=== PATIENT | male | born 1945 | race Caucasian/White ===

== ENCOUNTER 2024-07-16 15:49 | Inpatient (IN) | payer MEDICARE, OTHER, SELFPAY ==
[2024-07-16] VITALS (19 sets, daily range): BP systolic 91–100; BP diastolic 47–53; PULSE 74–99; RESP 12–25; TEMP 36.4; O2SAT 93–96
--- NOTE | 2024-07-16 | DI.RAD_ITS ---
Exam(s) XR PORTABLE CHEST AP EXAM: XR PORTABLE CHEST AP CLINICAL HISTORY: cough, SOB. TECHNIQUE: 2D digital imaging was performed. COMPARISON: CT CT CHEST/ABD/PELVIS W/CONTRAST from 07/16/2024 FINDINGS: Single AP portable view. Heart size is upper normal. The mediastinum is not widened. There are COPD changes. There is infiltrate in the left lower lobe posterior basal segment. Small a mount of left pleural fluid noted. Mild increased markings in the right lung base. There is also so me infiltrate in the left upper lobe sub apical region as well pleural thickening at this level. IMPRESSION: Left lung infiltrates. Small left pleural effusion. Mild increased markings in the right lower lung field. Above findings are superimposed upon COPD emphysematous changes. DATA REPOSITORY: RADIATION DOSE DELIVERED:
--- NOTE | 2024-07-16 19:20 | HPE_ITS ---
Date of service: 07/16/24 Time of Service: 19:20 Assessment and Plan Assessment and plan (1) Pneumonia: Status: Acute Assessment and plan: Probable pneumonia based on what we have at this point, though bronchitis/COPD possible too. Will continue antibiotics (check MRSA swab re Vanco) and will give scheduled nebs at this point as well (is also on Symbicort and Spiriva); I don't see need for steroids at present. Will obtain CXR so that we have some on site imaging. BP soft, without reactive tachycardia (note he is on Lopressor). Some concern for possible emerging sepsis. Will bolus IVF and monitor. SAH: subacute, and apparently stable and (per NS) not requiring any intervention. Will only hold ASA until we have more complete details. Discussed Advance Directives, requests DNR/DNI. History of Present Illness History of Present Illness Chief Complaint: SOB, cough, confusion Narrative: 78 male former smoker (though no formal diagnosis of COPD), was in [facility] last week with SOB and confusion. Found to have Flu., and also apparently an incidental finding of small volume SAH right frontal lobe, no interevntion indicated per NS. Discharged to [facility]. Sent today to [facility] for confusion and SOB (patient adds he has been coughing). Initial findings at [facility] of note for O2 sat 83% and patient was placed on BiPap and given Duonebs. White count 7, CT chest shows possible opacities viral swab triple negative. Patient given Vanco, cefepime and Zithromax. Head CT repeated and appears stable. RLE extremity obtained due to edema, no infectious process and patient states this is chronic. Due to lack of beds patient transferred her. States he feels less SOB, denies CP. Does feel warm and temp at time of visit 38.0. Has been weaned down to nasal cannula and sats low-mid 90s during visit. Review of Systems Narrative: per HPI PFSH All Active Problems (Updated 07/16/24 @ 19:34 by Giovanni Harris MD) Pneumonia (Acute) Social History Smoking risk assessment performed?: No Meds Allergies and Home Medications Allergies Allergy/AdvReac Type Severity Reaction Status Date / Time No Known Allergies Allergy Unverified 07/16/24 16:53 Exam Narrative Exam Narrative: 97/48, 91, 38.0, 22, 92% 2L. HEENT atraumatic; neck supple; lungs bibasilar rales; heart RRR; abdomen soft and NT; extremities bilateral pedal edema, R>L, no calf tenderness; neuro Ox3, lucid, though at times a little slow to gather his thoughts, moves all 4s Results Last Vital Signs Pulse Ox 94 07/16/24 18:37 Time Spent Time spent with Patient: 55-74 minutes Time was spent: preparing to see the patient(eg.review tests), obtaining and/or reviewing separately otained hiistory, ordering medications,tests, procedures, referring, communicating with other health home health care respiratory therapist and indepentently interpreting results
[2024-07-16] MEDS: Normal Saline 250 ML IV (19:30)
[2024-07-16] MEDS: Normal Saline 500 ML IV (20:45)
--- NOTE | 2024-07-16 21:07 | DI.VRAD_ITS ---
PROCEDURE INFORMATION: Exam: XR Chest Exam date and time: 07/16/2024 8:37 PM Age: 78 years old Clinical indication: Cough and shortness of breath; Cough, SOB TECHNIQUE: Imaging protocol: Radiologic exam of the chest. Views: 1 view. COMPARISON: No relevant prior studies available. FINDINGS: Lungs: Bilateral pulmonary opacities/infiltrates are identified likely pneumonia. Pleural spaces: Small pleural effusions. Heart/Mediastinum: Heart is prominent. Bones/joints: Unremarkable. IMPRESSION: 1. Bilateral pulmonary opacities/infiltrates possibly pneumonia. Continued follow-up to resolution is recommended. 2. Small pleural effusions. Dictated and Authenticated by: Raul Francois MD. Orderin Steven Davila MD
[2024-07-16] MEDS: AZITHROMYCIN 250 MG in Normal Saline 250 ML IVPB (21:23)
[2024-07-16] MEDS: Lactated Ringers 1,000 ML 125 ML IV (21:39)
[2024-07-16] MEDS: CEFEPIME 1 GM in Normal Saline 50 ML IVPB (22:42)
[2024-07-16 22:56] LABS: MRSA PCR Negative (Negative)
[2024-07-17] VITALS (108 sets, daily range): BP systolic 91–134; BP diastolic 40–105; PULSE 57–133; RESP 5–33; TEMP 37.3–37.7; O2SAT 80–98
[2024-07-17] MEDS: Norepinephrine in D5W 8 MG/250 ML BAG 5.625 MG IV (00:03)
[2024-07-17] MEDS: Normal Saline 500 ML IV (00:05)
[2024-07-17] MEDS: MAGNESIUM SULFATE 2 GM/50 ML BAG IV_INF (05:01)
[2024-07-17] MEDS: Furosemide 20 MG/2 ML VIAL IVP (05:10)
[2024-07-17] MEDS: CEFEPIME 1 GM in Normal Saline 50 ML IVPB ×3 (06:08→23:31)
[2024-07-17 06:47] LABS: Abs Immature Grans 0.06 10^3/uL (0.0-0.06); Absolute Basophil Count 0.05 10^3/uL (0.0-0.2); Absolute Eosinophil Count 0.03 10^3/uL (0.0-0.7); Absolute Lymphocyte Count 0.68 10^3/uL (1.2-3.4); Absolute Monocyte Count 0.83 10^3/uL (0.1-0.8); Absolute Neutrophil Count 8.56 10^3/uL (1.2-6.7); Basophils % 0.5 %; Eosinophils % 0.3 %; HCT 33.6 % (40.0-50.0); HGB 10.6 g/dL (13.5-17.5); Immature Grans % 0.6 %; Lymphocytes % 6.7 %; MCH 27.5 pg (27.0-33.0); MCHC 31.5 % (32.0-36.0); MCV 87 fL (80-95); MPV 10.4 fL (8.0-11.0); Monocytes % 8.1 %; Neutrophils % 83.8 %; Platelet Count 154 10^3/uL (130-400); RBC 3.85 10^6/uL (4.36-5.78); RDW 15.1 % (11.8-14.1); RDW-SD 48.4 fL; WBC 10.21 10^3/uL (4.4-10.8)
[2024-07-17 07:03] LABS: ALT 17 U/L (16-63); AST 18 U/L (15-37); Albumin 2.3 g/dL (3.4-5.0); Alkaline Phosphatase 103 U/L (46-116); Anion Gap 4.7 mmol/L (3-11); BUN 19 mg/dL (7-18); Bilirubin, Total 0.72 mg/dL (0.2-1.0); CO2 30.3 mmol/L (21.0-32.0); CREATININE 1.1 mg/dL (0.70-1.30); Calcium 8.8 mg/dL (8.5-10.1); Chloride 111 mmol/L (98-107); Estimated GFR 69.57 (mL/min/1.73m2); Glucose 98 mg/dL (74-106); Potassium 3.5 mmol/L (3.5-5.1); Sodium 146 mmol/L (136-145); Total Protein 6.1 g/dL (6.4-8.2)
[2024-07-17 07:24] LABS: Magnesium 1.4 mg/dL (1.8-2.4)
[2024-07-17] MEDS: Albuterol/Ipratropium 3 ML UPD VIAL UPD ×3 (08:33→20:00)
--- NOTE | 2024-07-17 08:41 | PDOC.CMIN ---
Date of service: 07/17/24 Time of Service: 08:41 Care Management Initial Assmt Initial Assessment Reason for Hospitalization: Pneumonia Functional Status/Living Situation Patient Presentation: Ed, as Gautam prefers to be called, was sitting up in bed when CM met with him. He is reportedly less confused today today per staff, however he still seems a bit slow and unsure with some of his responses. Ed was admitted with pneumonia. He was transferred from [facility] where he was sent from [facility] in [place]. CM contacted [facility] and learned that Ed was sent there for short term rehab and is expected to return to complete his rehab prior to going home. Ed lives in a single family home in [place], [place] with his Beth. He also has a daughter Alycia who lives locally and a son who lives in [place]. Ed stated that he uses a cane and a walker for ambulatory assistance. Ed retired last January. 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 His second career was with [employer]. He is independent with ADLs. Town of Residence: [place], [place] Resides with: Other (SNF) Significant Other/Family: Out of area (son in [place]) Employment Status: Retired Instrumental Activities of Daily Living (ADLs): Independent Medications Medication Management: No Issues/Barriers identified Physical Functioning/Mobility Assistive Device: cane and walker Advance Directives Advance Directives: Do you have an Advance Directive: Y 07/16/24 15:49 AD On File at [facility]: Y 07/16/24 15:49 Date Asked 07/16/24 07/16/24 14:16 AD Date Reviewed 07/16/24 07/16/24 15:49 COLST On File at [facility] COLST Date Scanned Code Status Resuscitation Status DNR/DNI Portal Pt does not currently have a portal and education provided: No Portal Education: Patient declined Insurance Coverage/Financial Issues Insurance: Medicare for Life Care Team Visit Care Team Role Provider Type Unknown Unknown Primary Care Provider STAFF PHYSICIAN Clay Mason Admit Provider [facility] STAFF PHYSICIAN Attending Provider Discharge Potential Discharge Needs: Other (SNF) Anticipated Barriers to Discharge: None Identified Patient/Family Education Needs: Review discharge instructions, discuss Ask Me Three Transportation: [facility] Transportation: Private vechicle Plan: Anticipate that Gautam will return to [facility] when medically stable. He will follow up with the facility providers and plan of care and transport via [facility] vs with family. CM will follow and continue to support discharge planning. Social Determinants of Health Screening Social Determinants of Health last assessed: 07/17/24 Will the Patient Participate in the Screening?: Yes Do you worry about having a steady place to live?: no Problems where you live: no known problems In the past 12 months, have you had to go without electric, gas, oil or water in your home?: no Have you or anyone in your house had to go without enough food to eat?: no Has lack of transportation kept you from medical appointments or from doing things needed for daily living?: no Has anyone in your life made you feel unsafe or unsupported?: no How hard is it for you to pay for the very basics like food, housing, medical care, and heating? Would you say it is:: Somewhat hard Do you want help finding or keeping work or a job?: I do not need or want help If for any reason you need help with day-to-day activities such as bathing, preparing meals, shopping, managing finances, etc., do you get the help you need?: I get all the help I need How often do you feel lonely or isolated from those around you?: Rarely Do you speak a language other than Marshallese at home?: No Does the patient want assistance with any of the above?: No Health Related Social Needs Health related social needs: problems related to housing/economic circumstances (Z59.89) and feeling lonely/isolated (Z60.8) PFSH All Active Problems (Updated 07/17/24 @ 11:00 by Clay Mason) DVT prophylaxis (Acute) Peripheral arterial disease (Acute) Hypertension (Chronic) Septic shock (Acute) COPD exacerbation (Acute) Pneumonia (Acute) Medical History (Updated 07/17/24 @ 11:00 by Clay Mason) COPD (chronic obstructive pulmonary disease) History of subarachnoid hemorrhage Surgical History (Updated 07/17/24 @ 10:58 by Clay Mason) S/P AAA (abdominal aortic aneurysm) repair Social History Smoking risk assessment performed?: No Housing: assisted living facility
--- NOTE | 2024-07-17 10:30 | W.PM.PROGNOT ---
Date of Service Date of service: 07/17/24 Time of Service: 08:35 Assessment and Plan Assessment and plan (1) Pneumonia: Status: Acute Assessment and plan: Pneumonia on CT at [facility] and CXR here. Continue cefepime and azithro, I agree with stopping vancomycin with negative MRSA swab. I started steroids given COPD and pneumonia. (2) Septic shock: Status: Acute Assessment and plan: On norepinephrine. Some signs of fluid overload, will not push fluids, get echocardiogram to assess fluid status. Taper norepi drip if able. (3) COPD exacerbation: Status: Acute Assessment and plan: IV methylprednisolone and nebs. Working with RT Resume outpatient inahalers. (4) Hypertension: Status: Chronic Assessment and plan: holding HCTZ, metoprolol whild BP low. (5) History of subarachnoid hemorrhage: Assessment and plan: Stable per report on 2 follow up CTs including 07/16 at [facility]. His mental status is clearing (6) Peripheral arterial disease: Status: Acute Assessment and plan: h/o AAA repair. Continue high intensity statin and aspirin (7) DVT prophylaxis: Status: Acute Assessment and plan: enoxaparin Subjective Subjective Patient reports: denies diarrhea, nausea, vomiting or fever Interval history since last seen: 24 hr: home meds not reconciled with home meds on admission Furosemide 20mg IV x 1 MRSA PCR nares negative, vancomycin not continued He is feeling a little better. Report of confusion overnight but he feels more clear mentally this morning. He states he feels like crap but can't say he has focal symptoms. No LANG, no chest pain, no abdominal pain. Breathing is getting better. No other joint or extremity pain. Exam Narrative Exam Narrative: GEN: Alert and oriented x 3, can report recent history at [facility]. lungs bibasilar diffusely poor air movement, slight rales just left base; heart RRR; abdomen soft and NT; extremities bilateral pedal edema 2-3+ in feet to shins, not tender. Objective Last Vital Signs Temp 37.6 C H 07/17/24 01:17 Pulse 109 H 07/17/24 10:16 Resp 32 H 07/17/24 10:16 BP 125/48 L 07/17/24 10:16 Pulse Ox 85 L 07/17/24 10:16 Laboratory Results - last 24 hr 07/16/24 07/17/24 21:30 05:35 WBC 10.21 RBC 3.85 L Hgb 10.6 L Hct 33.6 L MCV 87 MCH 27.5 MCHC 31.5 L RDW 15.1 H Plt Count 154 MPV 10.4 Immature Gran % 0.6 Neutrophils % 83.8 Lymphocytes % 6.7 Monocytes % 8.1 Eosinophils % 0.3 Basophils % 0.5 Nucleated RBC % 0.0 Absolute Neutrophils 8.56 H Absolute Lymphocytes 0.68 L Absolute Monocytes 0.83 H Absolute Eosinophils 0.03 Absolute Basophils 0.05 Sodium 146 H Potassium 3.5 Chloride 111 H Carbon Dioxide 30.3 Anion Gap 4.7 BUN 19 H Creatinine 1.1 Est GFR (CKD-EPI 2020) 69.57 Glucose 98 Calcium 8.8 Magnesium 1.4 L Total Bilirubin 0.72 AST 18 ALT 17 Alkaline Phosphatase 103 Total Protein 6.1 L Albumin 2.3 L MRSA (TEM-PCR) Negative Time Spent with Patient Time Spent with Patient: >50 minutes Time was spent: preparing to see the patient(eg.review tests), obtaining and/or reviewing separately otained hiistory, ordering medications,tests, procedures, referring, communicating with other health intensive care specialist, indepentently interpreting results, counseling the patient and care coordination
[2024-07-17] MEDS: Normal Saline Flush 10 ML SYR (10:40)
[2024-07-17] MEDS: methylPREDNISolone SUCC 125 MG VIAL 80 MG IVP ×2 (10:41→19:02)
--- NOTE | 2024-07-17 14:41 | CHAPLAIN ---
I visited with Ed this afternoon. He was resting in bed. He was pleasant and easily engaged in a conversation. Ed is from [place] and came here from [facility]. 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
[2024-07-17] MEDS: Normal Saline Flush 10 ML SYR IVP (19:02)
[2024-07-17] MEDS: Budesonide/Formoterol 160/4.5 6 GM 60 PUFF INH IH (20:06)
[2024-07-17] MEDS: Gabapentin 300 MG CAP 600 MG PO (20:25)
[2024-07-17] MEDS: Docusate Sodium 100 MG CAP PO (20:25)
[2024-07-17] MEDS: Metoprolol 25 MG TAB PO (20:26)
[2024-07-17] MEDS: guaiFENesin 600 MG TABCR PO (20:26)
[2024-07-17] MEDS: AZITHROMYCIN 250 MG in Normal Saline 250 ML IVPB (20:26)
[2024-07-17] MEDS: Atorvastatin 40 MG TAB 80 MG PO (20:26)
[2024-07-17] MEDS: traZODone 50 MG TAB PO (20:26)
[2024-07-17 20:49] LABS: Legionella Ag Detection Urine Negative (Negative)
[2024-07-18] VITALS (27 sets, daily range): BP systolic 103–133; BP diastolic 53–69; PULSE 57–97; RESP 5–28; TEMP 36.6–37.6; O2SAT 87–98
[2024-07-18] MEDS: methylPREDNISolone SUCC 125 MG VIAL 80 MG IVP (01:27)
[2024-07-18] MEDS: Normal Saline Flush 10 ML SYR IVP (01:30)
[2024-07-18] MEDS: Albuterol/Ipratropium 3 ML UPD VIAL UPD ×4 (02:40→20:25)
[2024-07-18 06:04] LABS: Abs Immature Grans 0.04 10^3/uL (0.0-0.06); Absolute Basophil Count 0.01 10^3/uL (0.0-0.2); Absolute Lymphocyte Count 0.23 10^3/uL (1.2-3.4); Absolute Monocyte Count 0.12 10^3/uL (0.1-0.8); Absolute Neutrophil Count 5.41 10^3/uL (1.2-6.7); Basophils % 0.2 %; HCT 34.3 % (40.0-50.0); HGB 10.8 g/dL (13.5-17.5); Immature Grans % 0.7 %; MCH 27.6 pg (27.0-33.0); MCHC 31.5 % (32.0-36.0); MCV 88 fL (80-95); Monocytes % 2.1 %; Platelet Count 141 10^3/uL (130-400); RBC 3.91 10^6/uL (4.36-5.78); RDW 14.9 % (11.8-14.1); RDW-SD 47.8 fL; WBC 5.81 10^3/uL (4.4-10.8)
[2024-07-18] MEDS: CEFEPIME 1 GM in Normal Saline 50 ML IVPB ×3 (06:04→21:43)
[2024-07-18 06:19] LABS: Anion Gap 5.7 mmol/L (3-11); BUN 27 mg/dL (7-18); CO2 28.3 mmol/L (21.0-32.0); CREATININE 1.2 mg/dL (0.70-1.30); Calcium 9.2 mg/dL (8.5-10.1); Chloride 109 mmol/L (98-107); Estimated GFR 62.67 (mL/min/1.73m2); Glucose 176 mg/dL (74-106); Potassium 3.9 mmol/L (3.5-5.1); Sodium 143 mmol/L (136-145)
[2024-07-18] MEDS: Budesonide/Formoterol 160/4.5 6 GM 60 PUFF INH IH ×2 (08:21→20:26)
[2024-07-18] MEDS: Tiotropium Bromide-Respimat 10 PUFF INH 2 PUFF IH (08:21)
[2024-07-18] MEDS: Docusate Sodium 100 MG CAP PO ×3 (08:40→20:15)
[2024-07-18] MEDS: guaiFENesin 600 MG TABCR PO ×2 (08:40→20:15)
[2024-07-18] MEDS: Aspirin E.C. 81 MG TABEC PO (08:41)
[2024-07-18] MEDS: predniSONE 20 MG TAB 40 MG PO (08:41)
[2024-07-18] MEDS: Gabapentin 300 MG CAP 600 MG PO ×2 (08:41→20:16)
[2024-07-18] MEDS: Metoprolol 25 MG TAB PO ×2 (08:41→20:15)
[2024-07-18] MEDS: Furosemide 20 MG TAB PO (08:41)
--- NOTE | 2024-07-18 09:23 | CMPROGNOTE_ITS ---
Date of service: 07/18/24 Time of Service: 09:24 Care Management Progress Note Progress Note Text Progress Note Text: Ed was sitting up in bed when CM met with him. He remains in the ICU but will be down graded to Med-Surg status later today. Ed was in good spirits when CM visited. He was smiling and seemed alert and fairly well oriented. CM informed him that she had spoken to his daughter Alycia and also to Admissions at [facility]. Per Alycia and [facility], the plan will be for Ed to return to [facility] upon discharge to complete his short term rehab. Alycia was able to provide some additional information about Ed. She stated that he has been declining over the past 5 years or so, both cognitively and physically. he has a hospital bed at home as well as a wheelchair and walker. She stated that he does have memory issues but has never been deemed to lack capacity. He has private caregiver twice a week to assist with bathing and he had been going to outpatient PT. She shared that it has been hard on her mother and they are beginning to work on intermediate card tender planning. Alycia noted that one of the barriers is Ed's unwillingness to consider residing in a SNF. Clinically, Ed is improving. His oxygen saturation has been in the 90s on 4L/min of O2 via nasal cannula. Per Alycia, he uses 2.5 L/min at rest and 4L/min during activity at baseline. Discharge Potential Discharge Needs: Other (return to SNF) Anticipated Barriers to Discharge: None Identified Patient/Family Education Needs: Review discharge instructions, discuss Ask Me Three Transportation: Facility Transport Plan: Anticipate that ED will return to [facility] when medically stable. He will follow up with the facility providers and plan of care and transport via [facility] vs with family. CM will follow and continue to support discharge planning. Social Determinants of Health Screening Social Determinants of Health last assessed: 07/18/24 Will the Patient Participate in the Screening?: Yes Do you worry about having a steady place to live?: no Problems where you live: no known problems In the past 12 months, have you had to go without electric, gas, oil or water in your home?: no Have you or anyone in your house had to go without enough food to eat?: no Has lack of transportation kept you from medical appointments or from doing things needed for daily living?: no Has anyone in your life made you feel unsafe or unsupported?: no How hard is it for you to pay for the very basics like food, housing, medical care, and heating? Would you say it is:: Somewhat hard Do you want help finding or keeping work or a job?: I do not need or want help If for any reason you need help with day-to-day activities such as bathing, preparing meals, shopping, managing finances, etc., do you get the help you need?: I get all the help I need How often do you feel lonely or isolated from those around you?: Rarely Do you speak a language other than Guamanian at home?: No Does the patient want assistance with any of the above?: No Health Related Social Needs Health related social needs: problems related to housing/economic circumstances (Z59.89) and feeling lonely/isolated (Z60.8)
--- NOTE | 2024-07-18 16:55 | W.PM.PROGNOT ---
Date of Service Date of service: 07/18/24 Time of Service: 16:55 Assessment and Plan Assessment and plan (1) Pneumonia: Status: Acute Assessment and plan: Pneumonia on CT at [facility] and CXR here. Continue cefepime and azithro, I agree with stopping vancomycin with negative MRSA swab. I started steroids given COPD and pneumonia. (2) Septic shock: Status: Acute Assessment and plan: On norepinephrine. Some signs of fluid overload, will not push fluids, get echocardiogram to assess fluid status. Taper norepi drip if able. 07.18.24 Pressure support no longer needed. Will downgrade to med-surg (3) COPD exacerbation: Status: Acute Assessment and plan: IV methylprednisolone and nebs. Working with RT Resume outpatient inahalers. (4) Hypertension: Status: Chronic Assessment and plan: holding HCTZ, metoprolol whild BP low. (5) History of subarachnoid hemorrhage: Assessment and plan: Stable per report on 2 follow up CTs including 07/16 at [facility]. His mental status is clearing Pt is on SCD because of this though (6) Peripheral arterial disease: Status: Acute Assessment and plan: h/o AAA repair. Continue high intensity statin and aspirin (7) DVT prophylaxis: Status: Acute Assessment and plan: scd in place 2/2 above Subjective Subjective Interval history since last seen: Pt seen and examined this am. Pt states that he feels much better. POC d/w pt and bedside nurse during ICU huddle Exam Narrative Exam Narrative: GEN: Alert and oriented x 3, can report recent history at [facility]. lungs bibasilar diffusely poor air movement, slight rales just left base; heart RRR; abdomen soft and NT; extremities bilateral pedal edema 2-3+ in feet to shins, not tender. Objective Last Vital Signs Temp 36.9 C 07/18/24 15:09 Pulse 82 07/18/24 14:01 Resp 26 H 07/18/24 14:01 BP 114/59 L 07/18/24 14:01 Pulse Ox 91 L 07/18/24 14:01 Laboratory Results - last 24 hr 07/16/24 07/18/24 07/18/24 21:00 05:38 05:44 WBC 5.81 RBC 3.91 L Hgb 10.8 L Hct 34.3 L MCV 88 MCH 27.6 MCHC 31.5 L RDW 14.9 H Plt Count 141 MPV 10.0 Immature Gran % 0.7 Neutrophils % 93.0 Lymphocytes % 4.0 Monocytes % 2.1 Eosinophils % 0.0 Basophils % 0.2 Nucleated RBC % 0.0 Absolute Neutrophils 5.41 Absolute Lymphocytes 0.23 L Absolute Monocytes 0.12 Absolute Eosinophils 0.00 Absolute Basophils 0.01 Sodium 143 Potassium 3.9 Chloride 109 H Carbon Dioxide 28.3 Anion Gap 5.7 BUN 27 H Creatinine 1.2 Est GFR (CKD-EPI 2020) 62.67 Glucose 176 H Calcium 9.2 Magnesium 2.0 Urine Legionella Ag Negative Time Spent with Patient Time Spent with Patient: 25-34 minutes Time was spent: preparing to see the patient(eg.review tests), obtaining and/or reviewing separately otained hiistory, ordering medications,tests, procedures, referring, communicating with other health lead caregiver, indepentently interpreting results, counseling the patient and care coordination
[2024-07-18] MEDS: Atorvastatin 40 MG TAB 80 MG PO (20:15)
[2024-07-18] MEDS: traZODone 50 MG TAB PO (20:15)
[2024-07-18] MEDS: AZITHROMYCIN 250 MG in Normal Saline 250 ML IVPB (20:16)
[2024-07-19] VITALS (16 sets, daily range): BP systolic 118–161; BP diastolic 50–79; PULSE 65–92; RESP 2–22; TEMP 36.2–36.9; O2SAT 88–99
[2024-07-19] MEDS: Normal Saline Flush 10 ML SYR IVP ×5 (01:00→19:57)
--- NOTE | 2024-07-19 01:33 | W.PC.ACHO ---
Registration Status: Primary Language: Preferred Language: Medical / Surgical History (Last Updated 07/17/24 @ 10:58 by Clay Mason) COPD (chronic obstructive pulmonary disease) History of subarachnoid hemorrhage (Last Updated 07/17/24 @ 10:58 by Clay Mason) S/P AAA (abdominal aortic aneurysm) repair Most Recent Vital Signs Temperature 36.6 C 07/18/24 23:56 Temperature Source Temporal Artery Scan 07/18/24 23:56 Pulse 78 07/18/24 23:56 Pulse 89 07/18/24 16:02 Respiratory Rate 20 07/18/24 23:56 Respiratory Effort Labored 07/16/24 18:54 Respiratory Depth Shallow 07/16/24 18:54 Blood Pressure 133/69 07/18/24 23:56 Blood Pressure Mean 79 07/18/24 16:01 Pulse Oximetry 95 07/18/24 23:56 Oxygen Delivery Method Nasal Cannula 07/18/24 23:56 Oxygen Flow Rate 4 07/18/24 23:56 Fraction of Inspired Oxygen (FIO2) 4 07/18/24 08:22 Pain Level 0 07/18/24 23:56 Allergies No Known Allergies Allergy (Unverified 07/16/24 16:53) Active Medications Generic Name Dose Route Start Last Admin Trade Name Freq PRN Reason Stop Dose Admin Albuterol/Ipratropium 3 ml 07/16/24 20:00 07/18/24 20:25 Albuterol/Ipratropium 3 Ml Upd Vial UPD 3 ml Q6H GRAYSON Administration Aspirin 81 mg 07/18/24 08:30 07/18/24 08:41 Aspirin E.C. 81 Mg Tabec PO 81 mg DAILY GRAYSON Administration Atorvastatin Calcium 80 mg 07/17/24 20:00 07/18/24 20:15 Atorvastatin 40 Mg Tab PO 80 mg HS GRAYSON Administration Budesonide/Formoterol Fumarate 1 puff 07/17/24 20:00 07/18/24 20:26 Budesonide/Formoterol 160/4.5 6 Gm 60 Puff Inh IH 2 puffs BID GRAYSON Administration Docusate Sodium 100 mg 07/17/24 20:00 07/18/24 20:15 Docusate Sodium 100 Mg Cap PO 100 mg TID GRAYSON Administration Furosemide 20 mg 07/18/24 08:30 07/18/24 08:41 Furosemide 20 Mg Tab PO 20 mg DAILY GRAYSON Administration Gabapentin 600 mg 07/17/24 20:00 07/18/24 20:16 Gabapentin 300 Mg Cap PO 600 mg BID GRAYSON Administration Guaifenesin 600 mg 07/17/24 20:00 07/18/24 20:15 Guaifenesin 600 Mg Tabcr PO 600 mg BID GRAYSON Administration Cefepime HCl 1 gm/ Sodium 50 mls @ 100 mls/hr 07/16/24 22:00 07/18/24 22:56 Chloride IVPB Infused Q8H GRAYSON Infusion Azithromycin 250 mg/ Sodium 250 mls @ 250 mls/hr 07/16/24 20:00 07/18/24 21:44 Chloride IVPB Infused Q24H GRAYSON Infusion Metoprolol Tartrate 25 mg 07/17/24 20:00 07/18/24 20:15 Metoprolol 25 Mg Tab PO 25 mg BID GRAYSON Administration Patient's Own 1 each 07/17/24 20:00 07/18/24 20:28 Medication ( PO Not Given Methylcellulose [ BID GRAYSON Citrucel] 500 Mg Tablet) Prednisone 40 mg 07/18/24 08:30 07/18/24 08:41 Prednisone 20 Mg Tab PO 40 mg DAILY GRAYSON Administration Sodium Chloride 0 ml 07/17/24 16:19 07/19/24 01:00 Normal Saline Flush 10 Ml Syr IVP 20 ml PRN PRN Administration Tiotropium [place] 2 puff 07/18/24 08:30 07/18/24 08:21 Tiotropium [place]-Respimat 10 Puff Inh IH 2 inh DAILY GARYSON Administration Trazodone HCl 50 mg 07/17/24 20:00 07/18/24 20:15 Trazodone 50 Mg Tab PO 50 mg HS GRAYSON Administration IV IV Catheter Type [R FA] Saline Lock IV Catheter Type [L AC] Peripheral IV IV Catheter Type [Right Saline Lock Forearm] IV Catheter Type [Right Peripheral IV Antecubital] IV Catheter Type [Left Saline Lock Antecubital] IV Catheter Gauge [R FA] 20 IV Catheter Gauge [L AC] 18 IV Catheter Gauge [Right 20 Forearm] IV Catheter Gauge [Right 18 Antecubital] IV Catheter Gauge [Left 18 Antecubital] Diagnostics 07/18/24 07/18/24 07/16/24 Range/Units 05:44 05:38 21:00 WBC 5.81 (4.4-10.8) 10^3/uL RBC 3.91 L (4.36-5.78) 10^6/uL Hgb 10.8 L (13.5-17.5) g/dL Hct 34.3 L (40.0-50.0) % MCV 88 (80-95) fL MCH 27.6 (27.0-33.0) pg MCHC 31.5 L (32.0-36.0) % RDW 14.9 H (11.8-14.1) % Plt Count 141 (130-400) 10^3/uL MPV 10.0 (8.0-11.0) fL Immature Gran % 0.7 % Neutrophils % 93.0 % Lymphocytes % 4.0 % Monocytes % 2.1 % Eosinophils % 0.0 % Basophils % 0.2 % Nucleated RBC % 0.0 (0.0-0.3) % Absolute Neutrophils 5.41 (1.2-6.7) 10^3/uL Absolute Lymphocytes 0.23 L (1.2-3.4) 10^3/uL Absolute Monocytes 0.12 (0.1-0.8) 10^3/uL Absolute Eosinophils 0.00 (0.0-0.7) 10^3/uL Absolute Basophils 0.01 (0.0-0.2) 10^3/uL Sodium 143 (136-145) mmol/L Potassium 3.9 (3.5-5.1) mmol/L Chloride 109 H (98-107) mmol/L Carbon Dioxide 28.3 (21.0-32.0) mmol/L Anion Gap 5.7 (3-11) mmol/L BUN 27 H (7-18) mg/dL Creatinine 1.2 (0.70-1.30) mg/dL Est GFR (CKD-EPI 2020) 62.67 (mL/min/1.73m2) Glucose 176 H (74-106) mg/dL Calcium 9.2 (8.5-10.1) mg/dL Magnesium 2.0 (1.8-2.4) mg/dL Urine Legionella Ag Negative (Negative) Intake and Output - 24 Hour Total 07/16/24 thru 07/19/24 00:13 Intake Total 4685.844 Output Total 3050 Balance 1635.844 Weight 105.3 kg Intake: IV 3320.844 Oral 1365 Output: Urine 3050 Other: Urine Color Yellow Straw Urine Appearance Clear Urine Odor Normal Urinary Catheter Urinary Catheter Date of 07/16/24 Insertion [Urethral (Wyatt)] Falls Risk Assessment History of Falls Previous History 07/16/24 18:54 Contributing Factors Impairments 07/16/24 18:54 Tubes/Lines W/no contributing factors 07/16/24 18:54 Fall Total Score 28 07/16/24 18:54 Level of Risk Moderate Risk 07/16/24 18:54 Problems (Last Updated 07/17/24 @ 10:58 by Clay Mason) DVT prophylaxis (Acute) Peripheral arterial disease (Acute) Hypertension (Chronic) Septic shock (Acute) COPD exacerbation (Acute) Pneumonia (Acute) v v v v v v v v v Sending and/or Receiving Nurses: Please use comment section below to note any information pertinent to the patient hand-off not included above. Information / Comments: Patient is a transfer from [facility] for higher level of care. pt currently has pneumonia, wet congested cough, dependent edema of BLE and BUE. Pt has a wyatt in place, bilateral AC IVs, 18g L and 20g R. Patient has been afebrile for over 24 hours now, and is a 2 person assist with a walker for stand pivot to commode. Ambulation efforts are very taxing for patient. pt on 2L/min O2 with increase to 4L with ambulation. Report received from: FAHEEM Davila
[2024-07-19] MEDS: Albuterol/Ipratropium 3 ML UPD VIAL UPD ×4 (02:07→20:51)
[2024-07-19] MEDS: CEFEPIME 1 GM in Normal Saline 50 ML IVPB ×3 (05:53→21:02)
[2024-07-19] MEDS: Budesonide/Formoterol 160/4.5 6 GM 60 PUFF INH IH ×2 (07:48→20:53)
[2024-07-19] MEDS: Tiotropium Bromide-Respimat 10 PUFF INH 2 PUFF IH (07:49)
[2024-07-19] MEDS: Aspirin E.C. 81 MG TABEC PO (09:33)
[2024-07-19] MEDS: Furosemide 20 MG TAB PO (09:33)
[2024-07-19] MEDS: guaiFENesin 600 MG TABCR PO ×2 (09:34→19:58)
[2024-07-19] MEDS: Docusate Sodium 100 MG CAP PO ×3 (09:34→19:59)
[2024-07-19] MEDS: Metoprolol 25 MG TAB PO ×2 (09:34→19:58)
[2024-07-19] MEDS: predniSONE 20 MG TAB 40 MG PO (09:35)
[2024-07-19] MEDS: Gabapentin 300 MG CAP 600 MG PO ×2 (09:37→19:58)
--- NOTE | 2024-07-19 14:01 | W.PALLCONSUL ---
Date of service: 07/19/24 Time of Service: 14:02 History of Present Illness Narrative: ED was seen in his room an [facility]. Prior to coming to the hospital, he was at [facility] for short-term rehab. Palliative was consulted due to him having a DNT order and being sent to the hospital. He was see nto clarify GOC. When questioned about the DNT order, he states, my wishes were pretty much blown away. He is clear that he is a DNR/DNI and that he does not want heroic measures. He states he is agreeable to treating infections/treatable conditions. He is not upset that he received treatment or that he is in the hospital. He participated in the decision to come to [facility] and he does not feel like it was the wrong choice. If he appears to be nearing the end of his, he wants to be kept comfortable. Reviewed DNT orders at SNF, he does not want this order at this point. If he is not able to participate in decision making, and appears to be declining, he would want to be kept at the facility for end of life care. He has had limited activity since he has been at the hospital. He is interested in working with PT. He was at [facility] for rehab. Spoke to his daughter, Alycia ([phone]) via phone. She feels he was quite confused when he came in to the hospital. She agrees not have DNT order. Assessment and Plan Assessment and plan (1) Pneumonia: Status: Acute (2) Septic shock: Status: Acute Assessment and plan: Pressure support no longer needed (3) COPD exacerbation: Status: Acute (4) Hypertension: Status: Chronic (5) History of subarachnoid hemorrhage: Assessment and plan: Stable (6) Peripheral arterial disease: Status: Acute Assessment and plan: h/o AAA repair. (7) Palliative care encounter: Status: Acute Assessment and plan: Ed was seen in his hospital room. He is admitted for Sepsis secondary to PNA and COPD exacerbation. Prior to admission, he was at [facility]. Palliative was consulted due to confusion about DNT order at the SNF and subsequent transfer to the hospital. There was question whether his wishes were honored with the transfer. Upon discussion, Ed was clear that he was okay with transfer to the hospital at this point. However, if he was declining and unable to participate in the discussion and appeared to be nearing the end of his life, he would not want aggressive care and would want to be kept in the home for EOL care. He is clear that he is a DNR/DNI. He is agreeable to having treatable conditions treated but would not want aggressive care/heroic measures. He has a COLST on file. Review of Systems Narrative: + mild SOB with talking PFSH All Active Problems (Updated 07/30/24 @ 10:51 by Kamilla Fu NP) Palliative care encounter (Acute) Peripheral arterial disease (Acute) Hypertension (Chronic) Septic shock (Acute) COPD exacerbation (Acute) Pneumonia (Acute) Medical History COPD (chronic obstructive pulmonary disease) History of subarachnoid hemorrhage Surgical History S/P AAA (abdominal aortic aneurysm) repair Social History Smoking/Tobacco Use Status: Former Tobacco Use Smoking risk assessment performed?: Yes Alcohol Intake: never Substance use type: does not use Housing: house Do you feel safe at home: Yes Do you feel safe in your relationship?: Yes Additional Social history: lives with only has Swedish as a 2nd language. also speaks Slovenian. daughter born in [facility] Exam Narrative Exam Narrative: General: very pleasant man, sitting up in the recliner in his hospital room .He is Alert and oriented and able to engage in conversation. HEENT: normocephalic, atraumatic, EOMI, mmm Neck: supple Cardiovascular: heart sounds regular, nontachycardic Respiratory: appears mildly SOB at times while talking, lung sounds are diminished throughout. rales to Left base. GI: +BS, abd soft, nondistended, nontender on palpation. Ext: moves all 4 extremities freely, 2-3+ to BLEs. Results Last Vital Signs Temp 36.7 C 07/19/24 11:54 Pulse 81 07/19/24 11:54 Resp 16 07/19/24 11:54 BP 126/76 07/19/24 11:54 Pulse Ox 94 07/19/24 11:54 Labs 07/21/24 06:00 02/16/25 06:00 Time Spent Time Spent with Patient Time Spent(min): 58
--- NOTE | 2024-07-19 16:16 | W.PM.PROGNOT ---
Date of Service Date of service: 07/19/24 Time of Service: 16:16 Assessment and Plan Assessment and plan (1) Pneumonia: Status: Acute Assessment and plan: Pneumonia on CT at [facility] and CXR here. Continue cefepime and azithro, I agree with stopping vancomycin with negative MRSA swab. I started steroids given COPD and pneumonia. 07.19.24 Zithromax/Cefepime Labs and fever curve reassuring (2) Septic shock: Status: Acute Assessment and plan: On norepinephrine. Some signs of fluid overload, will not push fluids, get echocardiogram to assess fluid status. Taper norepi drip if able. 07.18.24 Pressure support no longer needed. Will downgrade to med-surg (3) COPD exacerbation: Status: Acute Assessment and plan: IV methylprednisolone and nebs. Working with RT Resume outpatient inahalers. 07.19.24 pt is on albuterol/duoneb/prednisone (4) Hypertension: Status: Chronic Assessment and plan: holding HCTZ, metoprolol whild BP low. 07.19.24 Will restart BB and diuretic tomorrow. BP is mildly/moderately elevated. Would like another day of uninhibited beta agonist work (5) History of subarachnoid hemorrhage: Assessment and plan: Stable per report on 2 follow up CTs including 07/16 at [facility]. His mental status is clearing Pt is on SCD because of this though (6) Peripheral arterial disease: Status: Acute Assessment and plan: h/o AAA repair. Continue high intensity statin and aspirin (7) DVT prophylaxis: Status: Acute Assessment and plan: scd in place 2/2 above Subjective Subjective Interval history since last seen: Pt seen and examined in his room this am. Pt states he does feel better. POC d/w pt as well as NS during MDR Exam Narrative Exam Narrative: GEN: Alert and oriented x 3, can report recent history at [facility]. lungs bibasilar diffusely poor air movement, slight rales just left base; heart RRR; abdomen soft and NT; extremities bilateral pedal edema 2-3+ in feet to shins, not tender. Objective Last Vital Signs Temp 36.4 C L 07/19/24 15:28 Pulse 88 07/19/24 15:28 Resp 16 07/19/24 15:28 BP 154/66 H 07/19/24 15:28 Pulse Ox 96 07/19/24 15:28 Time Spent with Patient Time Spent with Patient: 25-34 minutes Time was spent: preparing to see the patient(eg.review tests), obtaining and/or reviewing separately otained hiistory, ordering medications,tests, procedures, referring, communicating with other health gericare aide teacher, indepentently interpreting results, counseling the patient and care coordination
--- NOTE | 2024-07-19 16:26 | PDOC.CMPRO ---
Date of service: 07/19/24 Time of Service: 16:26 Care Management Progress Note Progress Note Text Progress Note Text: Ed was sitting up in a chair when CM met with him.He was pleasant and easily engaged with CM. Clinically Ed is doing well. He is afebrile and is saturating at 92% on 2L/min of nasal O2. He has been out of bed in the chair and appears to be in good spirits. Ed had his wyatt catheter removed this afternoon but has not voided yet. If he continues to improve he will likely be ready for discharge within the next day or two. Discharge Potential Discharge Needs: PCP F/U Appt Anticipated Barriers to Discharge: None Identified Patient/Family Education Needs: Review discharge instructions, discuss Ask Me Three Transportation: Other (to be determined family vs RCT) Plan: Anticipate Ed will be discharged back to [facility] when medically cleared. He will follow up with facility providers and plan of care and transport with family vs RCT. CM will follow and continue to support dsicharge planning efforts. Social Determinants of Health Screening Social Determinants of Health last assessed: 07/19/24 Will the Patient Participate in the Screening?: Yes Do you worry about having a steady place to live?: no Problems where you live: no known problems In the past 12 months, have you had to go without electric, gas, oil or water in your home?: no Have you or anyone in your house had to go without enough food to eat?: no Has lack of transportation kept you from medical appointments or from doing things needed for daily living?: no Has anyone in your life made you feel unsafe or unsupported?: no How hard is it for you to pay for the very basics like food, housing, medical care, and heating? Would you say it is:: Somewhat hard Do you want help finding or keeping work or a job?: I do not need or want help If for any reason you need help with day-to-day activities such as bathing, preparing meals, shopping, managing finances, etc., do you get the help you need?: I get all the help I need How often do you feel lonely or isolated from those around you?: Rarely Do you speak a language other than Maori at home?: No Does the patient want assistance with any of the above?: No Health Related Social Needs Health related social needs: problems related to housing/economic circumstances (Z59.89) and feeling lonely/isolated (Z60.8)
[2024-07-19] MEDS: AZITHROMYCIN 250 MG in Normal Saline 250 ML IVPB (19:57)
[2024-07-19] MEDS: Atorvastatin 40 MG TAB 80 MG PO (19:58)
[2024-07-19] MEDS: traZODone 50 MG TAB PO (19:58)
[2024-07-20] VITALS (13 sets, daily range): BP systolic 120–145; BP diastolic 62–70; PULSE 67–85; RESP 2–18; TEMP 36–37.5; O2SAT 89–95
[2024-07-20] MEDS: Albuterol/Ipratropium 3 ML UPD VIAL UPD ×4 (02:23→20:37)
[2024-07-20] MEDS: CEFEPIME 1 GM in Normal Saline 50 ML IVPB ×3 (05:29→22:33)
[2024-07-20] MEDS: Normal Saline Flush 10 ML SYR IVP ×6 (05:29→22:34)
[2024-07-20 06:30] LABS: Abs Immature Grans 0.04 10^3/uL (0.0-0.06); Absolute Lymphocyte Count 0.54 10^3/uL (1.2-3.4); Absolute Monocyte Count 0.41 10^3/uL (0.1-0.8); Absolute Neutrophil Count 4.59 10^3/uL (1.2-6.7); HCT 34.9 % (40.0-50.0); HGB 11.2 g/dL (13.5-17.5); Immature Grans % 0.7 %; Lymphocytes % 9.7 %; MCH 27.7 pg (27.0-33.0); MCHC 32.1 % (32.0-36.0); MCV 86 fL (80-95); MPV 9.8 fL (8.0-11.0); Monocytes % 7.3 %; Neutrophils % 82.3 %; Platelet Count 193 10^3/uL (130-400); RBC 4.05 10^6/uL (4.36-5.78); RDW 15.3 % (11.8-14.1); RDW-SD 48.2 fL; WBC 5.58 10^3/uL (4.4-10.8)
[2024-07-20 06:49] LABS: ALT 54 U/L (16-63); AST 32 U/L (15-37); Albumin 2.3 g/dL (3.4-5.0); Alkaline Phosphatase 97 U/L (46-116); BUN 29 mg/dL (7-18); Bilirubin, Total 0.39 mg/dL (0.2-1.0); CREATININE 1.1 mg/dL (0.70-1.30); Calcium 9.1 mg/dL (8.5-10.1); Chloride 111 mmol/L (98-107); Estimated GFR 69.57 (mL/min/1.73m2); Glucose 99 mg/dL (74-106); Potassium 3.3 mmol/L (3.5-5.1); Sodium 146 mmol/L (136-145); Total Protein 6.1 g/dL (6.4-8.2)
[2024-07-20] MEDS: Budesonide/Formoterol 160/4.5 6 GM 60 PUFF INH IH ×2 (08:30→20:40)
[2024-07-20] MEDS: Tiotropium Bromide-Respimat 10 PUFF INH 2 PUFF IH (08:31)
[2024-07-20] MEDS: Gabapentin 300 MG CAP 600 MG PO ×2 (09:01→21:04)
[2024-07-20] MEDS: predniSONE 20 MG TAB 40 MG PO (09:01)
[2024-07-20] MEDS: guaiFENesin 600 MG TABCR PO ×2 (09:03→21:05)
[2024-07-20] MEDS: Furosemide 20 MG TAB PO (09:03)
[2024-07-20] MEDS: Docusate Sodium 100 MG CAP PO ×3 (09:03→21:05)
[2024-07-20] MEDS: Aspirin E.C. 81 MG TABEC PO (09:03)
[2024-07-20] MEDS: Metoprolol 25 MG TAB PO ×2 (09:03→21:05)
--- NOTE | 2024-07-20 11:00 | PHA.REVIEW2 ---
Pharmacy Admission Review Admission Clinical Review Admission Pharmacy Review: DVT prophylaxis (Acute) Peripheral arterial disease (Acute) Septic shock (Acute) COPD exacerbation (Acute) Pneumonia (Acute) No Known Allergies Allergy (Unverified 07/16/24 16:53) Resuscitation Status DNR/DNI Height 5 ft 10 in Weight 107.365 kg Pharmacy Admission Review Renal Dosing Renal Dosing: BUN 29 mg/dL (7-18) H 07/20/24 06:10 Creatinine 1.1 mg/dL (0.70-1.30) 07/20/24 06:10 Medications needing adjustments: Reviewed (CrCl 70.1 mL/min, BUN increased from 27) List of meds needing interventions: Current medications are okay Anticoagulation Anticoagulation: Hgb 11.2 g/dL (13.5-17.5) L 07/20/24 06:10 Hct 34.9 % (40.0-50.0) L 07/20/24 06:10 Plt Count 193 10^3/uL (130-400) 07/20/24 06:10 Creatinine 1.1 mg/dL (0.70-1.30) 07/20/24 06:10 DVT Prophylaxis: Reviewed (SCDs/TEDs, Hgb increased from 10.8) Relevant Labs Relevant Labs: Sodium 146 mmol/L (136-145) H 07/20/24 06:10 Potassium 3.3 mmol/L (3.5-5.1) L 07/20/24 06:10 Chloride 111 mmol/L (98-107) H 07/20/24 06:10 Magnesium 2.0 mg/dL (1.8-2.4) 07/18/24 05:38 Electrolytes, C-Reactive P, ESR: Reviewed (Na 146, K 3.3 - mentioned to provider this AM, plan to replete) Cardiac Review BP, HR, EF%: Reviewed (HR and BP WNL, oxygen flow rate 1.5) List meds needing interventions: Has order for furosemide 20mg daily and metoprolol 25mg BID QTc Review QTc: Reviewed (No EKG on file) IV to PO Switch IV Medications: Reviewed (azithromycin and cefepime) Home Meds Home Med List reviewed: Intervened Relevent Home Meds Not ordered & why?: HCTZ (on hold per H+P) - providers progress note yesterday stated that it would be restarted today. Reached out this AM as no order was put in. Per provider holding off until potassium is repleted. Citrucel put in as patients own order, nurse checking to see if this can be brought in for patient. Current Meds Current Medication Order Review: Intervened Comments: Added IV access order set Pharmacy Antibiotic Review Relevant Labs: WBC 5.58 10^3/uL (4.4-10.8) 07/20/24 06:10 Temperature 36.0 C Temperature 36.7 C Temperature 36.3 C Temperature 36.2 C Pharmacy Antibiotic Activity: C/S review and Reviewed, no change Comments: Patient is on azithromycin and cefepime, day 4, for pneumonia/sepsis. No cultures pending at this time.
--- NOTE | 2024-07-20 13:30 | W.PM.PROGNOT ---
Date of Service Date of service: 07/20/24 Time of Service: 13:30 Assessment and Plan Assessment and plan (1) Pneumonia: Status: Acute Assessment and plan: Pneumonia on CT at [facility] and CXR here. Continue cefepime and azithro, I agree with stopping vancomycin with negative MRSA swab. I started steroids given COPD and pneumonia. 07.19.24 Zithromax/Cefepime Labs and fever curve reassuring (2) Septic shock: Status: Acute Assessment and plan: On norepinephrine. Some signs of fluid overload, will not push fluids, get echocardiogram to assess fluid status. Taper norepi drip if able. 07.18.24 Pressure support no longer needed. Will downgrade to med-surg (3) COPD exacerbation: Status: Acute Assessment and plan: IV methylprednisolone and nebs. Working with RT Resume outpatient inahalers. 07.19.24 pt is on albuterol/duoneb/prednisone (4) Hypertension: Status: Chronic Assessment and plan: holding HCTZ, metoprolol whild BP low. 07.19.24 Will restart BB and diuretic tomorrow. BP is mildly/moderately elevated. Would like another day of uninhibited beta agonist work 07/20/24 BP is fair today, continue to monitor (5) History of subarachnoid hemorrhage: Assessment and plan: Stable per report on 2 follow up CTs including 07/16 at [facility]. His mental status is clearing Pt is on SCD because of this though (6) Peripheral arterial disease: Status: Acute Assessment and plan: h/o AAA repair. Continue high intensity statin and aspirin (7) DVT prophylaxis: Status: Acute Assessment and plan: scd in place 2/2 above Subjective Subjective Interval history since last seen: Pt seen and examined in his room this am. PT states that he is feeling better. POC d/w pt as well as with bedside nurse during MDR Exam Narrative Exam Narrative: GEN: Alert and oriented x 3, can report recent history at [facility]. lungs bibasilar diffusely poor air movement, slight rales just left base; heart RRR; abdomen soft and NT; extremities bilateral pedal edema 2-3+ in feet to shins, not tender. Objective Last Vital Signs Temp 36.0 C L 07/20/24 11:02 Pulse 67 07/20/24 11:02 Resp 18 07/20/24 11:02 BP 120/69 07/20/24 11:02 Pulse Ox 92 07/20/24 11:02 Laboratory Results - last 24 hr 07/20/24 06:10 WBC 5.58 RBC 4.05 L Hgb 11.2 L Hct 34.9 L MCV 86 MCH 27.7 MCHC 32.1 RDW 15.3 H Plt Count 193 MPV 9.8 Immature Gran % 0.7 Neutrophils % 82.3 Lymphocytes % 9.7 Monocytes % 7.3 Eosinophils % 0.0 Basophils % 0.0 Nucleated RBC % 0.0 Absolute Neutrophils 4.59 Absolute Lymphocytes 0.54 L Absolute Monocytes 0.41 Absolute Eosinophils 0.00 Absolute Basophils 0.00 Sodium 146 H Potassium 3.3 L Chloride 111 H Carbon Dioxide 30.0 Anion Gap 5.0 BUN 29 H Creatinine 1.1 Est GFR (CKD-EPI 2020) 69.57 Glucose 99 Calcium 9.1 Total Bilirubin 0.39 AST 32 ALT 54 Alkaline Phosphatase 97 Total Protein 6.1 L Albumin 2.3 L Time Spent with Patient Time Spent with Patient: 25-34 minutes Time was spent: preparing to see the patient(eg.review tests), obtaining and/or reviewing separately otained hiistory, ordering medications,tests, procedures, referring, communicating with other health family day care provider, indepentently interpreting results and counseling the patient
[2024-07-20] MEDS: Potassium Chloride 20 MEQ TABCR PO (21:04)
[2024-07-20] MEDS: traZODone 50 MG TAB PO (21:04)
[2024-07-20] MEDS: Atorvastatin 40 MG TAB 80 MG PO (21:04)
[2024-07-20] MEDS: AZITHROMYCIN 250 MG in Normal Saline 250 ML IVPB (21:06)
[2024-07-21] VITALS (12 sets, daily range): BP systolic 119–155; BP diastolic 60–78; PULSE 63–81; RESP 2–19; TEMP 36.1–36.8; O2SAT 90–94
[2024-07-21] MEDS: Albuterol/Ipratropium 3 ML UPD VIAL UPD ×4 (01:35→20:25)
--- NOTE | 2024-07-21 02:27 | RESPIRATORY ---
0140: Patient refused to continue the scheduled neb treatment in the middle of treatment. RT was forced to leave the room by patient Why I am still seeing you in my room, I want you to leave my room now this RT kindly stopped the scheduled breathing treatment and left the room for patient's request. Patient stated he was not aware and this RT did not asked him permission to get inside the room, however this RT has awaken patient from sleeping for the treatment, patient agreed to assessment including pulse oximetry check prior to neb treatment but refuses during the neb treatment and this RT also have made aware patient that what time this RT will be seeing him for the next breathing treatment during the previous breathing treatment which was around 1999.
[2024-07-21] MEDS: CEFEPIME 1 GM in Normal Saline 50 ML IVPB ×3 (05:57→22:21)
[2024-07-21] MEDS: Normal Saline Flush 10 ML SYR IVP (05:58)
[2024-07-21 06:29] LABS: Absolute Basophil Count 0.02 10^3/uL (0.0-0.2); Absolute Eosinophil Count 0.02 10^3/uL (0.0-0.7); Absolute Monocyte Count 0.47 10^3/uL (0.1-0.8); Absolute Neutrophil Count 4.35 10^3/uL (1.2-6.7); Basophils % 0.4 %; Eosinophils % 0.4 %; HCT 36.9 % (40.0-50.0); HGB 11.6 g/dL (13.5-17.5); Immature Grans % 1.8 %; Lymphocytes % 12.4 %; MCH 27.2 pg (27.0-33.0); MCHC 31.4 % (32.0-36.0); MCV 87 fL (80-95); MPV 9.6 fL (8.0-11.0); Monocytes % 8.3 %; Neutrophils % 76.7 %; Platelet Count 193 10^3/uL (130-400); RBC 4.26 10^6/uL (4.36-5.78); RDW 15.5 % (11.8-14.1); RDW-SD 48.8 fL; WBC 5.66 10^3/uL (4.4-10.8)
[2024-07-21 06:50] LABS: ALT 48 U/L (16-63); AST 20 U/L (15-37); Albumin 2.4 g/dL (3.4-5.0); Alkaline Phosphatase 102 U/L (46-116); Anion Gap 4.1 mmol/L (3-11); BUN 28 mg/dL (7-18); CO2 29.9 mmol/L (21.0-32.0); CREATININE 1.1 mg/dL (0.70-1.30); Calcium 9.2 mg/dL (8.5-10.1); Chloride 112 mmol/L (98-107); Estimated GFR 69.57 (mL/min/1.73m2); Glucose 89 mg/dL (74-106); Potassium 3.7 mmol/L (3.5-5.1); Sodium 146 mmol/L (136-145); Total Protein 6.3 g/dL (6.4-8.2)
[2024-07-21] MEDS: Potassium Chloride 20 MEQ TABCR PO ×2 (07:57→20:49)
[2024-07-21] MEDS: predniSONE 20 MG TAB 40 MG PO (07:57)
[2024-07-21] MEDS: Aspirin E.C. 81 MG TABEC PO (07:58)
[2024-07-21] MEDS: Metoprolol 25 MG TAB PO ×2 (07:58→20:49)
[2024-07-21] MEDS: guaiFENesin 600 MG TABCR PO ×2 (07:58→20:49)
[2024-07-21] MEDS: Gabapentin 300 MG CAP 600 MG PO ×2 (07:58→20:49)
[2024-07-21] MEDS: Docusate Sodium 100 MG CAP PO ×3 (07:58→20:49)
[2024-07-21] MEDS: Furosemide 20 MG TAB PO (07:58)
[2024-07-21] MEDS: Tiotropium Bromide-Respimat 10 PUFF INH 2 PUFF IH (08:03)
[2024-07-21] MEDS: Budesonide/Formoterol 160/4.5 6 GM 60 PUFF INH IH ×2 (08:04→21:22)
--- NOTE | 2024-07-21 12:51 | PGE_ITS ---
Date of Service Date of service: 07/21/24 Time of Service: 12:51 Assessment and Plan Assessment and plan (1) Pneumonia: Status: Acute Assessment and plan: Pneumonia on CT at [facility] and CXR here. Continue cefepime and azithro, I agree with stopping vancomycin with negative MRSA swab. I started steroids given COPD and pneumonia. 07.19.24 Zithromax/Cefepime Labs and fever curve reassuring Will probably be able to stop abx tomorrow. (2) Septic shock: Status: Acute Assessment and plan: On norepinephrine. Some signs of fluid overload, will not push fluids, get echocardiogram to assess fluid status. Taper norepi drip if able. 07.18.24 Pressure support no longer needed. Will downgrade to med-surg (3) COPD exacerbation: Status: Acute Assessment and plan: IV methylprednisolone and nebs. Working with RT Resume outpatient inahalers. 07.19.24 pt is on albuterol/duoneb/prednisone (4) Hypertension: Status: Chronic Assessment and plan: holding HCTZ, metoprolol whild BP low. 07.19.24 Will restart BB and diuretic tomorrow. BP is mildly/moderately elevated. Would like another day of uninhibited beta agonist work 07/20/24 BP is fair today, continue to monitor (5) History of subarachnoid hemorrhage: Assessment and plan: Stable per report on 2 follow up CTs including 07/16 at [facility]. His mental status is clearing Pt is on SCD because of this though (6) Peripheral arterial disease: Status: Acute Assessment and plan: h/o AAA repair. Continue high intensity statin and aspirin (7) DVT prophylaxis: Status: Acute Assessment and plan: scd in place 2/2 above Subjective Subjective Interval history since last seen: Pt seen and examined in his room this am. States that he is feeling better. POC d/w pt as well as bedside nurse during MDR. Exam Narrative Exam Narrative: GEN: Alert and oriented x 3, can report recent history at [facility]. lungs bibasilar diffusely poor air movement, slight rales just left base; heart RRR; abdomen soft and NT; extremities bilateral pedal edema 2-3+ in feet to shins, not tender. Objective Last Vital Signs Temp 36.4 C L 07/21/24 11:47 Pulse 64 07/21/24 11:47 Resp 19 07/21/24 11:47 BP 129/67 07/21/24 11:47 Pulse Ox 94 07/21/24 11:47 Laboratory Results - last 24 hr 07/21/24 06:00 WBC 5.66 RBC 4.26 L Hgb 11.6 L Hct 36.9 L MCV 87 MCH 27.2 MCHC 31.4 L RDW 15.5 H Plt Count 193 MPV 9.6 Immature Gran % 1.8 Neutrophils % 76.7 Lymphocytes % 12.4 Monocytes % 8.3 Eosinophils % 0.4 Basophils % 0.4 Nucleated RBC % 0.0 Absolute Neutrophils 4.35 Absolute Lymphocytes 0.70 L Absolute Monocytes 0.47 Absolute Eosinophils 0.02 Absolute Basophils 0.02 Sodium 146 H Potassium 3.7 Chloride 112 H Carbon Dioxide 29.9 Anion Gap 4.1 BUN 28 H Creatinine 1.1 Est GFR (CKD-EPI 2020) 69.57 Glucose 89 Calcium 9.2 Total Bilirubin 0.50 AST 20 ALT 48 Alkaline Phosphatase 102 Total Protein 6.3 L Albumin 2.4 L Time Spent with Patient Time Spent with Patient: 35-49 minutes Time was spent: preparing to see the patient(eg.review tests), obtaining and/or reviewing separately otained hiistory, ordering medications,tests, procedures, referring, communicating with other health workforce investment act career manager, indepentently interpreting results, counseling the patient and care coordination
[2024-07-21] MEDS: Atorvastatin 40 MG TAB 80 MG PO (20:49)
[2024-07-21] MEDS: AZITHROMYCIN 250 MG in Normal Saline 250 ML IVPB (20:49)
[2024-07-21] MEDS: traZODone 50 MG TAB PO (20:49)
[2024-07-22 03:59] VITALS: BP 140/71; PULSE 64; RESP 20; TEMP 36.4; O2SAT 95
[2024-07-22] MEDS: CEFEPIME 1 GM in Normal Saline 50 ML IVPB (05:23)
[2024-07-22] MEDS: Normal Saline Flush 10 ML SYR IVP ×2 (05:24→07:48)
[2024-07-22] MEDS: predniSONE 20 MG TAB 40 MG PO (07:47)
[2024-07-22] MEDS: guaiFENesin 600 MG TABCR PO (07:47)
[2024-07-22] MEDS: Gabapentin 300 MG CAP 600 MG PO (07:47)
[2024-07-22] MEDS: Potassium Chloride 20 MEQ TABCR PO (07:47)
[2024-07-22] MEDS: Furosemide 20 MG TAB PO (07:47)
[2024-07-22] MEDS: Aspirin E.C. 81 MG TABEC PO (07:47)
[2024-07-22] MEDS: Docusate Sodium 100 MG CAP PO (07:47)
[2024-07-22] MEDS: Metoprolol 25 MG TAB PO (07:48)
[2024-07-22 07:51] VITALS: BP 149/71; PULSE 70; RESP 20; TEMP 36.6; O2SAT 90
[2024-07-22 09:28] VITALS: PULSE 69; RESP 18; RESP 6; RESP 9; O2SAT 92
[2024-07-22] MEDS: Albuterol/Ipratropium 3 ML UPD VIAL UPD (09:28)
[2024-07-22] MEDS: Tiotropium Bromide-Respimat 10 PUFF INH 2 PUFF IH (09:31)
[2024-07-22] MEDS: Budesonide/Formoterol 160/4.5 6 GM 60 PUFF INH IH (09:32)
[2024-07-22 09:35] VITALS: PULSE 69
[2024-07-22 11:16] VITALS: BP 120/64; PULSE 63; RESP 15; TEMP 36.5; O2SAT 93
--- NOTE | 2024-07-22 11:36 | DSE_ITS ---
Date of service: 07/22/24 Time of Service: 11:37 DS: Diagnosis Discharge Diagnosis (1) Pneumonia: Status: Acute (2) Septic shock: Status: Acute (3) COPD exacerbation: Status: Acute (4) Hypertension: Status: Chronic (5) History of subarachnoid hemorrhage: (6) Peripheral arterial disease: Status: Acute Discharge Plan Disposition Patient Dis[facility] Condition: Improving Discharge Details Reason For Visit: Pneumonia, sepsis, respiratory failure Admit Date/Time: 07/16/24 15:49 Admit Provider: Clay Mason Attending Provider: Angelo Mitchell Primary Care Provider: Unknown,Unknown Hospital Course Hospital Course: This is a 78-year-old male patient past medical history significant for tobacco abuse who was recently hospitalized at an outside hospital for shortness of breath and confusion. At that time he was found to have the flu and an incidental finding of a small subarachnoid hemorrhage. Neurosurgery was consulted and there was no interventions required. His symptoms improved with and he was discharged to a rehabilitation center for further rehab prior to returning home. While at the rehab found again to be confused and having shortness of breath. Reportedly had been coughing. In the emergency department at the outside hospital he was found to be hypoxic placed on BiPAP and given DuoNebs. Viral swab was negative. There is question of opacities on his chest x-ray he was started on triple antibiotic therapy and transferred here due to a lack of bed availability. Shortly after arriving here found to be hypotensive requiring David-Synephrine. He was admitted to the intensive care unit for further management. He responded to treatment and was down stepped to the medical surgical unit. He completed 6-day course of IV antibiotics that included cefepime vancomycin and azithromycin. He still is requiring 1 to 2 L to maintain sats in the low 90s. He is eating and drinking and feeling at his baseline. He is medically stable and ready for discharge back to rehabilitation. He is being transported by ground transportation Discharge discussed with Dr. Mitchell Home Meds and New Rx's Prescriptions: New prednisone 20 mg Tablet See Taper PO DAILY Qty: 30 0RF Taper: Prednisone 10mg taper 40 mg Daily for 2 Days and 0 Hour 30 mg Daily for 2 Days and 0 Hour 20 mg Daily for 2 Days and 0 Hour 10 mg Daily for 2 Days and 0 Hour 5 mg Daily for 2 Days and 0 Hour guaifenesin [Mucus Relief ER] 600 mg Tablet Extended Release 12hr 600 mg PO BID Qty: 10 0RF Continued Spiriva Respimat 2.5 mcg/actuation mist 2 puff INHALATION DAILY gabapentin 300 mg capsule 600 mg PO BID Patient Comments: TAKE TWO CAPSULES BY MOUTH TWICE A DAY FOR NEUROPATHY hydrochlorothiazide 25 mg tablet 25 mg PO ONCE Patient Comments: not on detention med list or 07/12/24 progress note metoprolol tartrate 50 mg tablet 25 mg PO BID budesonide-formoterol 160-4.5 mcg/actuation HFA aerosol inhaler 1 inh INHALATION BID Patient Comments: INHALE ONE PUFF BY MOUTH TWICE A DAY. RINSE MOUTH AFTER USE. trazodone 50 mg tablet 50 mg PO HS Patient Comments: TAKE 1 TABLET BY MOUTH AT BEDTIME atorvastatin 80 mg tablet 80 mg PO HS furosemide 20 mg tablet 20 mg PO DAILY Patient Comments: TAKE ONE TABLET BY MOUTH EVERY DAY acetaminophen 500 mg capsule 1,000 mg PO TID aspirin 81 mg capsule 81 mg PO DAILY Citrucel 500 mg tablet 500 mg PO BID Discharge Instructions Instructions: Sepsis in adults, Community-acquired pneumonia in adults Additional Instructions: taper steroids as directed, take 40 mg daily for 2 days, 30 mg daily for 2 days, 20 mg daily for 2 days, 10 mg daily for 2 days then 5 mg daily and stop you have completed your course of antibiotics and do not need any further antibiotics at discharge Resume your usual medications as previously directed Referrals: Unknown,Unknown [Primary Care Provider] - (Routine rehab posthospitalization follow-up in 1 to 2 days) Activity:: Activity as Tolerated Equipment/Supplies:: No Equipment Needed Diet:: As Tolerated Discharge Orders Discharge Orders: Discharge Order (Routine); Ordered 07/22/24 Ordered By: Lillie Alvarez DS: Summary Time Spent with Patient providing and/or coordinating discharge services: Greater than 30 minutes Status at Discharge Functional status at discharge: uses cane/walker Overall status at discharge: patient is progressing back to baseline Mental Status: mental status grossly normal Speech and Movement: speech and movement normal Mood: congruent mood Affect: normal affect Quality:SDOH Health Related Social Needs: Health related social needs problems related to housin g/economic circumstances (Z59.89), feeling lonely/isolated (Z60.8) Exam Narrative Exam Narrative: Elderly gentleman of stated age in no acute distress head is atraumatic eyes nonicteric noninjected sitting up in his Cher chair neurologic he is awake alert oriented no focal deficits oromucosa is slightly dry neck with full range of motion no JVD respirations even and unlabored breath sounds are diminished throughout no wheezing or rhonchi appreciated cardiovascular regular rate and rhythm his abdomen is round nontender he moves extremities equally. Psychiatric appropriate mood and affect Psych Mental Status: mental status grossly normal Speech and Movement: speech and movement normal Mood: congruent mood Affect: normal affect DS: Data Vitals/I&O Vitals and I&O: Vital Signs Temperature 36.5 C 07/22/24 11:16 Temperature Source Temporal Artery Scan 07/22/24 11:16 Pulse 63 07/22/24 11:16 Pulse 89 07/18/24 16:02 Respiratory Rate 15 07/22/24 11:16 Respiratory Effort Labored 07/16/24 18:54 Respiratory Depth Shallow 07/16/24 18:54 Blood Pressure 120/64 07/22/24 11:16 Blood Pressure Mean 79 07/18/24 16:01 Pulse Oximetry 93 07/22/24 11:16 Oxygen Delivery Method Nasal Cannula 07/22/24 11:16 Oxygen Flow Rate 1 07/22/24 11:16 Fraction of Inspired Oxygen (FIO2) 4 07/18/24 08:22 Pain Level 0 07/22/24 11:16 Comment Pt refused vital signs att. Pt reported being upset, b/c of having to do a breathing treatment, I didn't know what they were here for at this time of night. Talked with pt with Vani NANCE, and reassured him he was safe in bed at the hospital. We will reapproach at 0600 for vitals and ABX Tx. 07/21/24 01:58 Intake & Output 07/21/24 07/21/24 07/22/24 11:59 23:59 11:59 Intake Total 953 / 1423 470 / 1423 490 / 490 Output Total 700 / 1200 500 / 1200 600 / 600 Balance 253 / 223 -30 / 223 -110 / -110 Weight 107.5 kg 104.5 kg Intake: IV 60 / 410 350 / 410 50 / 50 Oral 893 / 1013 120 / 1013 440 / 440 Output: Urine 700 / 1200 500 / 1200 600 / 600 Other: Urine Color Pale Yellow Yellow Urine Appearance Clear Clear Clear Urine Odor Normal Normal Normal PFSH All Active Problems (Updated 07/17/24 @ 11:00 by Clay Mason) DVT prophylaxis (Acute) Peripheral arterial disease (Acute) Hypertension (Chronic) Septic shock (Acute) COPD exacerbation (Acute) Pneumonia (Acute) Medical History (Updated 07/17/24 @ 11:00 by Clay Mason) COPD (chronic obstructive pulmonary disease) History of subarachnoid hemorrhage Surgical History (Updated 07/17/24 @ 10:58 by Clay Mason) S/P AAA (abdominal aortic aneurysm) repair Social History Smoking/Tobacco Use Status: Former Tobacco Use Smoking risk assessment performed?: Yes Alcohol Intake: never Substance use type: does not use Housing: house Do you feel safe at home: Yes Do you feel safe in your relationship?: Yes Additional Social history: lives with only has Yi as a 2nd language. also speaks [place]. daughter born in [facility] Time Spent with Patient Time Spent with Patient: 45-69 minutes Time was spent: preparing to see the patient(eg.review tests), obtaining and/or reviewing separately otained hiistory, ordering medications,tests, procedures, indepentently interpreting results, counseling the patient and care coordination
--- NOTE | 2024-07-22 17:13 | CMDISCH_ITS ---
Date of service: 07/22/24 Time of Service: 17:13 LACE Index Scoring Tool Questions: Length of Stay (in days): 4 - 6 Was the patient admitted via the E.D.?: No Comorbidities: PVD and Chronic Pulmonary Disease E.D. Visits: 1 Answers: Total Score: 8 Risk of Readmission: Low Risk Care Management Discharge Plan Reason for Hospitalization: Pneumonia Discharge Plan: Gautam will be discharged back to [facility]. He will follow up with the facility providers and plan of care and transport via EMS as he requires oxygen. Patient/Family Education Needs: Review discharge instructions, discuss Ask Me Three Services Needed at Discharge: [facility] Care Facility SDOH Health Related Social Needs: Health related social needs problems related to housin g/economic circumstances (Z59.89), feeling lonely/isolated (Z60.8)
== END 2024-07-22 13:26 | disposition skilled nursing facility (03) | DRG 871 ==
LOC: ICU 07-18 20:21 → MS 07-18 23:53
PROVIDERS: General Practice; Admitting Provider Family Medicine; Responsible Provider Nurse Practitioner Acute Care; Visit Provider Hospitalist
DX: A41.9 Sepsis, unspecified organism (principal); I60.8 Other nontraumatic subarachnoid hemorrhage; R65.21 Severe sepsis with septic shock; J18.9 Pneumonia, unspecified organism; J44.0 Chronic obstructive pulmonary disease with (acute) lower respiratory infection; J44.1 Chronic obstructive pulmonary disease with (acute) exacerbation; I10 Essential (primary) hypertension; I73.9 Peripheral vascular disease, unspecified; Z66 Do not resuscitate; R60.0 Localized edema; Z95.828 Presence of other vascular implants and grafts; R09.02 Hypoxemia
CPT/HCPCS: 00123; 36415; 80048; 80053; 87449; 87641; 94640; 94761; 96375; 96376; 71045; 83735; 85025; 93306; 94664; 94667; 94668; 94760; 99223; 99232; 99233; 99239; J0456; J0692; J1941; J2919; J3475; J7512; J7620